=== PATIENT | female | born 1970 | race Caucasian/White ===

== ENCOUNTER 2021-05-29 10:32 | Outpatient (CLI) | payer OTHER, SELFPAY ==
--- NOTE | 2021-05-29 10:49 | XR_ITS ---
WS: [id number] ABDOMEN 2 VIEW(S) HISTORY: RIGHT LOWER QUADRANT ABDOMINAL PAIN COMPARISON: None available. Normal bowel gas pattern. Calcification LEFT upper abdomen is probably a splenic granuloma. No free air. No bone abnormality. XR/XR abdomen min 2V [id number] IMPRESSION: Normal abdomen.
== END 2021-05-29 10:33 | disposition home or self-care (01) ==
PROVIDERS: Visit Provider Nurse Practitioner Family
DX: R10.31 Right lower quadrant pain (principal)
CPT/HCPCS: 74019